=== PATIENT | female | born 1960 | race Caucasian/White ===

== ENCOUNTER 2021-03-06 08:52 | Inpatient (IN) ==
[2021-02-27 17:29] LABS: Basophils # (Auto) 0.07 K/mcL (0.00-0.20); Basophils % (Auto) 1.3 % (0.0-2.0); Eosinophils # (Auto) 0.31 K/mcL (0.00-0.70); Eosinophils % (Auto) 5.9 % (0.0-7.0); Hematocrit 44.2 % (36.0-48.0); Hemoglobin 13.3 g/dL (12.0-15.0); Lymphocytes # (Auto) 1.61 K/mcL (1.50-4.80); Lymphocytes % (Auto) 30.5 % (15.0-49.0); Mean Corpuscular HGB Conc 30.1 g/dL (31.0-36.0); Monocytes # (Auto) 0.54 K/mcL (0.10-0.90); Monocytes % (Auto) 10.2 % (1.0-12.0); Neutrophils % (Auto) 52.1 % (38.0-78.0); Platelet Count 281 K/mcL (140-440); RBC 5.67 M/mcL (4.00-5.20); WBC 5.3 K/mcL (4.5-11.0)
[2021-02-27 17:38] LABS: Blood Urea Nitrogen 8 mg/dL (8-23); Calcium 9.6 mg/dL (8.6-10.4); Carbon Dioxide 28 mmol/L (22-30); Chloride 105 mmol/L (96-108); Glomerular Filtration Rate 79; Glucose 88 mg/dL (70-105)
[2021-02-27 20:04] LABS: Appearance,Urine HAZY (Clear); Bilirubin,Urine Negative (Negative); Color,Urine YELLOW; Culture Indicated,Urine No; Glucose,Urine (UA) Negative (Negative); Ketones,Urine Negative (Negative); Leukocyte Esterase,Urine 25 /ug (Negative); Mucus,Urine FEW /hpf; Nitrate,Urine Negative (Negative); Protein,Urine 30 mg/dL (Negative); Specific Gravity,Urine 1.019 (1.000-1.035); Urine Blood Negative (Negative); Urine RBC 1 /hpf (0-3); Urine Squamous Epithelial Cell 8 /hpf (0-4); Urine WBC 7 /hpf (0-4); Urobilinogen,Urine Negative
[~2021-03-06 08:52] MED LIST: 0.9 % SODIUM CHLORIDE 9 ML, KETOROLAC 30 MG, ROPIVACAINE HCL/PF 49.5 ML, EPINEPHrine 0.... IJ SCH; ACETAMINOPHEN 500 MG TABLET PO SCH; CELECOXIB 200 MG CAPSULE PO SCH; GABAPENTIN 300 MG CAPSULE PO SCH; ceFAZolin 2 GM in DEXTROSE 5% IN WATER 50 ML IV SCH; oxyCODONE 10 MG TAB.ER.12H PO SCH
[2021-03-06] MEDS ORDERED: IPRATROPIUM/ALBUTEROL 3 ML AMPUL.NEB NEB PRN ×2 (13:00→14:37)
[2021-03-06] MEDS ORDERED: SCOPOLAMINE 1 PATCH PATCH TOPICAL PRN (13:00)
[2021-03-06] MEDS ORDERED: GENTAMICIN SULFATE 800 MG/20 ML VIAL IR ONE (13:11)
[2021-03-06] MEDS ORDERED: TRANEXAMIC ACID 1,000 MG/10 ML VIAL IV ONE (13:47)
[2021-03-06] MEDS ORDERED: KETAMINE 100 MG/ML ML ONE (13:47)
[2021-03-06] MEDS ORDERED: DEXAMETHASONE 10 MG/ML VIAL ONE (13:47)
[2021-03-06] MEDS ORDERED: FAMOTIDINE/PF 20 MG/2 ML VIAL IV ONE (13:47)
[2021-03-06] MEDS ORDERED: PROPOFOL 200 MG/20 ML VIAL IV ONE (13:47)
[2021-03-06] MEDS ORDERED: ROPIVACAINE HCL/PF 20 ML VIAL IJ ONE (13:47)
[2021-03-06] MEDS ORDERED: METOPROLOL TARTRATE 5 MG/5 ML VIAL IV ONE (13:47)
[2021-03-06] MEDS ORDERED: MIDAZOLAM 2 MG/2 ML VIAL ONE (13:47)
[2021-03-06] MEDS ORDERED: PHENYLEPHRINE 10 MG/ML VIAL ONE (13:47)
[2021-03-06] MEDS ORDERED: LIDOCAINE HCL/PF 100 MG/5 ML SYRINGE IV ONE (13:47)
[2021-03-06] MEDS ORDERED: ePHEDrine 50 MG/ML AMPUL IV ONE (13:47)
[2021-03-06] MEDS ORDERED: ONDANSETRON 4 MG/2 ML VIAL ONE (13:47)
[2021-03-06] MEDS ORDERED: ePHEDrine 50 MG/ML AMPUL IV PRN (14:37)
[2021-03-06] MEDS ORDERED: METOPROLOL TARTRATE 5 MG/5 ML VIAL IV PRN (14:37)
[2021-03-06] MEDS ORDERED: ATROPINE SULFATE 0.4 MG/ML VIAL IV PRN (14:37)
[2021-03-06] MEDS ORDERED: fentaNYL 100 MCG/2 ML VIAL IV PRN (14:37)
[2021-03-06] MEDS ORDERED: FLUMAZENIL 0.1 MG/ML ML IV PRN (14:37)
[2021-03-06] MEDS ORDERED: ONDANSETRON 4 MG/2 ML VIAL IV PRN ×2 (14:37→15:15)
[2021-03-06] MEDS ORDERED: NALOXONE HCL 0.4 MG/ML VIAL IV PRN (14:37)
[2021-03-06] MEDS ORDERED: HYDROmorphone 0.5 MG/0.5 ML SYRINGE IV PRN (14:37)
[2021-03-06] MEDS ORDERED: diphenhydrAMINE 50 MG/ML VIAL IV PRN (14:37)
[2021-03-06] MEDS ORDERED: ACETAMINOPHEN 1,000 MG/100 ML BAG IV ONE (14:37)
[2021-03-06] MEDS ORDERED: MEPERIDINE 25 MG/ML VIAL IV PRN (14:37)
[2021-03-06] MEDS ORDERED: METHOCARBAMOL 1,000 MG/10 ML VIAL IV PRN (14:37)
[2021-03-06] MEDS ORDERED: PROMETHAZINE 25 MG/ML VIAL IV PRN (14:37)
[2021-03-06] MEDS ORDERED: LACTATED RINGERS 1,000 ML IV SCH (14:45)
[2021-03-06] MEDS ORDERED: FLEETS ADULT ENEMA PR PRN (15:15)
[2021-03-06] MEDS ORDERED: BENZOCAINE/MENTHOL 1 LOZENGE PO PRN (15:15)
[2021-03-06] MEDS ORDERED: BISACODYL 10 MG SUPP.RECT PR PRN (15:15)
[2021-03-06] MEDS ORDERED: MAGNESIUM HYDROXIDE 30 ML ORAL.SUSP PO PRN (15:15)
[2021-03-06] MEDS ORDERED: TRANEXAMIC ACID 1,000 MG/10 ML VIAL IV SCH (15:15)
[2021-03-06] MEDS ORDERED: ACETAMINOPHEN 325 MG TABLET PO PRN (15:15)
[2021-03-06] MEDS ORDERED: POLYETHYLENE GLYCOL 3350 17 GM PACKET PO PRN (15:15)
--- NOTE | 2021-03-06 15:15 | Brief Operative Note ---
Brief Operative Note Date of procedure: 03/06/21 Pre-op diagnosis: Left knee failed pft Post-op diagnosis: same Procedure: left knee revision patellar femoral to tka gi Grafts/Implants: Yes Anesthesia: GETA Complications: none Surgeon: Tino Gomez Spanish Linguist: Juan Jose Castillo Estimated blood loss (cc): 40 Tourniquet Time (Minutes): 45 Specimens Removed/Pathology: none sent Condition: stable Disposition: PACU
[2021-03-06] MEDS ORDERED: ALBUTEROL SULFATE 200 PUFF INHALER INH PRN (15:17)
[2021-03-06] MEDS ORDERED: CETIRIZINE 10 MG TABLET PO PRN (15:26)
[2021-03-06] MEDS ORDERED: VITAMIN B COMPLEX 1 CAPSULE PO PRN (15:29)
--- NOTE | 2021-03-06 15:29 | Discharge Plan ---
Discharge Instructions - TKA Patient Instructions Total Knee Protocol: For Total Knee: Start ROM CHAD with stationary bike or rocking chair. Work on gaining full extension of knee. Posterior dislocation precautions provided. Hip abductor strengthening and gait training instructions provided. Apply Cryocuff as instructed. Discharge Plan Patient/Caregiver Discharge Instructions Activity: ambulate only with your walker and as per physical therapy Diet: Regular Diet Prescriptions: New hydrocodone-acetaminophen 10-325 mg Tablet 1 - 2 tab PO Q4HP PRN (Reason: Per Pain Protocol) Qty: 75 RF: 0 aspirin 325 mg Tablet,Delayed Release (Dr/Ec) 325 mg PO BID Qty: 60 RF: 0 docusate sodium [DOK] 100 mg Capsule 100 mg PO BID Qty: 60 RF: 0 No Action aspirin 81 mg tablet,delayed release (DR/EC) 81 mg PO QDAY RF: 0 omega-3 fatty acids [Fish Oil Concentrate] 1,000 mg capsule 1,000 mg PO QDAY RF: 0 atorvastatin 20 mg tablet 20 mg PO QDAY Qty: 90 RF: 4 vitamin B complex Tablet 1 tab PO QDAY PRN (Reason: Allergies) RF: 0 ferrous fumarate 324 mg (106 mg iron) tablet 324 mg PO BID RF: 0 gabapentin 300 mg capsule 300 mg PO QHS Qty: 30 RF: 0 cholecalciferol (vitamin D3) [Vitamin D3] 25 mcg (1,000 unit) Capsule 25 mcg PO QDAY RF: 0 erythromycin with ethanol 2 % solution 1 applic TOPICAL DAILYP PRN (Reason: Rash) RF: 0 omeprazole 20 mg tablet,delayed release (DR/EC) 20 mg PO ACB RF: 0 albuterol sulfate [ProAir HFA] 90 mcg/actuation HFA aerosol inhaler 2 puff INHALATION DAILYP PRN (Reason: Shortness Of Breath) RF: 0 cephalexin 500 mg Capsule 2,000 mg PO DAILY PRN (Reason: Prophylaxis) RF: 0 ascorbic acid (vitamin C) [Vitamin C] 500 mg Capsule, Extended Release 500 mg PO QDAY RF: 0 polyethylene glycol 3350 [Miralax] 17 gram/dose Powder 17 g PO QDAY RF: 0 Zyrtec 10 mg Capsule 10 mg PO QDAY PRN (Reason: Allergies) RF: 0 Other Ambulatory Orders: CPM Discharge Order (ONCE) Location: None Selected Ordered By: Juan Jose Castillo Physical Therapy DC - TKA (Routine) Location: None Selected Ordered By: Juan Jose Castillo Toilet Riser Discharge Order (ONCE) Location: None Selected Ordered By: Juan Jose Castillo Walker (ONCE) Location: None Selected Ordered By: Juan Jose Castillo Follow Up Plan Follow up with: Juan Jose Castillo PA-C [Physician [employer] Operator] - Patient Disposition: Home, Self-Care Prognosis: Good Rehab Potential: Good I certify that the patient requires SNF services: No Discharge Orders: Discharge Order (Routine); Ordered 03/07/21 Ordered By: Juan Jose Castillo
[2021-03-06] MEDS ORDERED: [UNRECOGNIZED DRUG - OTHER] TOPICAL PRN (15:30)
[2021-03-06] MEDS ORDERED: ERYTHROMYCIN TOPICAL PRN (15:30)
--- NOTE | 2021-03-06 15:55 | Operative Note ---
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 POSTOPERATIVE DIAGNOSES: Failed patellofemoral joint replacement. PROCEDURE: Left total knee arthroplasty revision of patellofemoral to a total knee arthroplasty using the [employer] robot, hardware removal of the old implant with the implantation of the new. SURGEON: Tino Gomez M.D. IT COMPLIANCE ANALYST: Juan Jose Castillo PA-C. The PA's assistance was required for the safe and efficient completion of the entire case. This provider's expertise and technical skill were required throughout the case. The PA assisted with preoperative coordination, intraoperative retraction, wound closure, dressing and splint application, as well as postoperative documentation and care coordination. ANESTHESIA: General LMA anesthesia. COMPLICATIONS: None. TOURNIQUET TIME: 45 minutes. DESCRIPTION OF PROCEDURE: The patient was brought to the operating room, put to sleep with general LMA anesthesia. Once asleep, the patient had the left leg sterilely prepped and draped. Ioban was placed over the skin. A timeout was performed confirming this as the operative site by initials, consent form, and x-rays. The leg was exsanguinated and tourniquet inflated to 250 pounds of pressure. A midline incision through a prior scar was made. Once done, we were able to expose the joint with a midvastus approach showing a well-positioned patellofemoral joint without any sign of loosening, Soft tissue from the superior pouch was sent for high-powered field. Once done, we were able to then remove the implant with minimal bone loss. We also removed the patellofemoral implant. The patellar button was removed using a reciprocating saw. We irrigated thoroughly and then we registered the center of hip rotation after placing two pins above and below the knee. We registered medial and lateral malleolus, registered intra-articular pins, registered thirty points on the femur and the tibia. We balanced the knee at 90 degrees as well as at 15 degrees. Once this was balanced and we adjusted the implants according to the patient's ligamentous laxity, we then brought in the robot and made the bony cuts and trialed the implants. These fit very well with a 9 mm cruciate-retained total knee. We removed the poly covering of the patella using the reciprocating saw. We then drilled the peg holes and then trialed the components. All seemed to fit well. The robot registered the ligamentous tightening that we had preoperatively planned, and it was symmetric and equal. We irrigated thoroughly. We were able to then cement into place all new components, new femur, new tibial baseplate with a 9 mm cruciate-retained design poly liner and then a 36 mm patellar button. These all fit very nicely. We irrigated thoroughly, deflated the tourniquet at 45 minutes. We also controlled bleeding and the posterior capsule was injected with the post-injection formula. We closed the midvastus approach with #1 Stratafix and subcutaneous suture. Adhesive closure was also applied. Capsule was closed with #1 Stratafix x2 with a good repair. We also removed one anchor that had been placed on the tibia for an unknown reason. This was removed without difficulty. We preserved the posterior cruciate ligament. There were no complications. RBH:mell Job ID: [id number] Doc ID: [id number] Tino Gomez MD
--- NOTE | 2021-03-06 15:59 | XRay Report ---
INDICATION: Post-Op Total Knee TECHNIQUE: AP and crosstable lateral knee COMPARISON: Previous examination dated 02/03/2020 FINDINGS:Interval revision of left knee arthroplasty. Findings are not consistent with total knee arthroplasty. Prosthetic components are in anatomic positions. There is postsurgical soft tissue and intra-articular gas IMPRESSION: Status post left total knee arthroplasty Interpreted and Authenticated by: Ethan Mukherjee 03/06/21
[2021-03-06] MEDS: 0.45 % SODIUM CHLORIDE 1,000 ML IV SCH (16:57)
[2021-03-06] MEDS: KETOROLAC 15 MG/ML VIAL IV SCH (18:05)
[2021-03-06] MEDS: FERROUS FUMARATE PO SCH (18:06)
[2021-03-06] MEDS: HYDROcodone/APAP 10/325MG TABLET PO PRN (19:10)
[2021-03-06] MEDS ORDERED: SENNOSIDES 1 TABLET PO SCH (21:00)
[2021-03-06] MEDS ORDERED: TEMAZEPAM 15 MG CAPSULE PO PRN (21:00)
[2021-03-06] MEDS ORDERED: GABAPENTIN 300 MG CAPSULE PO SCH (21:00)
[2021-03-06] MEDS: ASPIRIN 325 MG ENTERIC COATED TABLET PO SCH (21:14)
[2021-03-06] MEDS: DOCUSATE SODIUM 100 MG CAPSULE PO SCH (21:14)
[2021-03-06] MEDS: ceFAZolin 1 GM VIAL IV SCH (21:14)
[2021-03-06] MEDS: 0.9 % SODIUM CHLORIDE 10 ML SYRINGE IV SCH (21:46)
[2021-03-07] MEDS: HYDROcodone/APAP 10/325MG TABLET PO PRN ×3 (00:11→10:58)
[2021-03-07] MEDS: KETOROLAC 15 MG/ML VIAL IV SCH ×2 (00:12→05:32)
[2021-03-07] MEDS: 0.45 % SODIUM CHLORIDE 1,000 ML IV SCH (03:09)
[2021-03-07] MEDS: 0.9 % SODIUM CHLORIDE 10 ML SYRINGE IV SCH (05:33)
[2021-03-07] MEDS: ceFAZolin 1 GM VIAL IV SCH (05:33)
[2021-03-07] MEDS ORDERED: OMEPRAZOLE 20 MG CAPSULE PO SCH (07:30)
--- NOTE | 2021-03-07 07:40 | Orthopedic Progress Note ---
SUBJECTIVE Subjective Patient information: Note initiated : 03/07/21 at 7:39 am Service Date, if different from initiated Date: [] Patient: Elizabeth Aldrich 60 y/o F admitted on 03/06/21 for Left Total Knee Arthroplasty Revision Matt,. Chief Complaint: [Pt is stable this morning on post operative day without any significant concerns or complaints. Patients vital signs have remained stable. Patients dressing is dry and is grossly intact from a neurovascular and motor standpoint. Patients 10 point ROS is otherwise negative. ] Constitutional Vitals: Vital Signs Temp Pulse Resp BP Pulse Ox 97.7 F 57 L 20 132/64 95 03/07/21 07:31 03/07/21 07:31 03/07/21 07:31 03/07/21 07:31 03/07/21 07:31 Period Temp Pulse Resp BP Sys/Smith Pulse Ox Last 24 Hr 96.9 F-99.6 F 47-77 16-23 123-141/62-72 92-100 Intake and Output 03/06/21 03/07/21 03/07/21 21:59 05:59 13:59 Intake Total 2110 1300 Output Total 1175 770 Balance 935 530 Weight 250 lb 3 oz Intake & Output: Intake & Output 03/06/21 03/07/21 03/07/21 21:59 05:59 13:59 Intake Total 2110 1300 Output Total 1175 770 Balance 935 530 Weight 250 lb 3 oz Intake: IV 50 1000 Sodium Chloride 0.45% 1,000 ml 1000 @ 100 mls/hr IV .Q10H [facility] Rx#: [id number] Ancef 2 gm In Dextrose 5% in 50 Water 50 ml @ 100 mls/hr IV PREOP [facility] Rx#:[id number] Oral 360 300 IV - Manual Only 1700 Output: Urine Catheter Amount 725 Straight 725 Void Amount 400 770 Estimated Blood Loss 50 Other: Meal Dinner Percent of Meal Consumed 100% Feeding Ability Independent Urine Appearance Clear Clear Straight Clear Urine Color Pale Bright Yellow Straight Pale Extremities Exam Extremities exam: Present normal capillary refill, normal inspection, Foot pink and warm and neurovascular intact OBJ DATA Labs CBC & Chem 7: 03/07/21 05:21 02/27/21 14:58 Meds: Medications Acetaminophen (Acetaminophen 325 Mg Tablet) 650 mg PO Q6HP PRN; Protocol PRN Reason: Per Pain Protocol/Fever > 101 Hydrocodone Bitart/Acetaminophen (Hydrocodone/Apap 10/325mg Tablet) 1 - 2 tab PO Q4HP PRN; Protocol PRN Reason: Per Pain Protocol Last Admin: 03/07/21 05:33 Dose: 1 tab Documented by: Albuterol Sulfate (Albuterol Sulfate 200 Puff Inhaler) 2 puff INH DAILYP PRN PRN Reason: Shortness Of Breath Ascorbic Acid (Ascorbic Acid 500 Mg Tablet) 500 mg PO DAILY [facility] Aspirin (Aspirin 325 Mg Enteric Coated Tablet) 325 mg PO BID [facility] Last Admin: 03/06/21 21:14 Dose: 325 mg Documented by: Atorvastatin Calcium (Atorvastatin 20 Mg Tablet) 20 mg PO QDAY [facility] Bisacodyl (Bisacodyl 10 Mg Supp.Rect) 10 mg RI Q2-3DAYS PRN PRN Reason: Constipation Cetirizine HCl (Cetirizine 10 Mg Tablet) 10 mg PO DAILYP PRN PRN Reason: Allergies Last Admin: 03/06/21 21:17 Dose: 10 mg Documented by: Docusate Sodium (Docusate Sodium 100 Mg Capsule) 100 mg PO BID [facility] Last Admin: 03/06/21 21:14 Dose: 100 mg Documented by: Fish Oil (Fish Oil 1,000 Mg Capsule) 1,000 mg PO DAILY [facility] Gabapentin (Gabapentin 300 Mg Capsule) 300 mg PO QHS [facility] Last Admin: 03/06/21 21:15 Dose: 300 mg Documented by: Ketorolac Tromethamine (Ketorolac 15 Mg/Ml Vial) 15 mg IV Q6 [facility] Stop: 03/08/21 12:01 Last Admin: 03/07/21 05:32 Dose: 15 mg Documented by: Magnesium Hydroxide (Magnesium Hydroxide 30 Ml Oral.Susp) 30 ml PO BIDP PRN PRN Reason: Constipation Omeprazole (Omeprazole 20 Mg Capsule) 20 mg PO ACB [facility] Last Admin: 03/07/21 06:57 Dose: 20 mg Documented by: Ondansetron HCl (Ondansetron 4 Mg/2 Ml Vial) 4 mg IV Q4HP PRN PRN Reason: Nausea And Vomiting Erythromycin With (Ethanol 2 % Solution) 1 dose TOPICAL DAILYP PRN PRN Reason: Rash Ferrous Fumarate 324 Mg (106 Mg Iron) [facility]t [facility] Last Admin: 03/06/21 18:06 Dose: Not Given Documented by: Polyethylene Glycol (Polyethylene Glycol 3350 17 Gm Packet) 17 gm PO DAILY [facility] Senna (Sennosides 1 Tablet) 2 tab PO HS [facility] Last Admin: 03/06/21 21:15 Dose: 2 tab Documented by: Sodium Biphosphate/Sodium Phosphate (Fleets Adult Enema) 1 dose RI Q3-4DAYS PRN PRN Reason: Constipation Sodium Chloride (0.9 % Sodium Chloride 10 Ml Syringe) 10 ml IV Q8 [facility] Last Admin: 03/07/21 05:33 Dose: 10 ml Documented by: Temazepam (Temazepam 15 Mg Capsule) 15 mg PO HSP PRN PRN Reason: Insomnia Last Admin: 03/07/21 00:11 Dose: 15 mg Documented by: Throat Lozenges (Benzocaine/Menthol 1 Lozenge) 1 lozenge PO PRN PRN PRN Reason: Sore Throat Vitamin B Complex (Vitamin B Complex 1 Capsule) 1 cap PO DAILYP PRN PRN Reason: Allergies Vitamin D (Vitamin D3 1,000 Unit Tablet) 1,000 unit PO DAILY [facility] A/P Narrative A/P Narrative: The patient has been educated regarding dressing care, Physical Therapy recommendations, home exercises, restrictions, and follow up appointme nts. The patient has had all necessary DME prescribed. The patient has remained relatively stable during their hospital course. Pt has progressed quicker than expected and meets the criteria for early discharge per Physicial Therapy and our evaluation. Time Spent With Patient Time: Total time spent is greater than 50% in coordination of care (as documented) at patient's floor/unit and/or counseling patient: Total time spent with greater than 50% in coordination of care (as documented) at patient's floor/unit and/or counseling patient:: less than 15 minutes
[2021-03-07] MEDS: ASPIRIN 325 MG ENTERIC COATED TABLET PO SCH (08:20)
[2021-03-07] MEDS: DOCUSATE SODIUM 100 MG CAPSULE PO SCH (08:20)
[2021-03-07] MEDS: FERROUS FUMARATE PO SCH (08:22)
[2021-03-07] MEDS ORDERED: FISH OIL 1,000 MG CAPSULE PO SCH (09:00)
[2021-03-07] MEDS ORDERED: POLYETHYLENE GLYCOL 3350 17 GM PACKET PO SCH (09:00)
[2021-03-07] MEDS ORDERED: ASCORBIC ACID 500 MG TABLET PO SCH (09:00)
[2021-03-07] MEDS ORDERED: VITAMIN D3 1,000 UNIT TABLET PO SCH (09:00)
[2021-03-07] MEDS ORDERED: ATORVASTATIN 20 MG TABLET PO SCH (09:00)
--- NOTE | 2021-03-07 12:38 | Surgical Pathology Report ---
Histology Microscopic Diagnosis Specimen A- LEFT SUPER PATELLAR POUCH EXCISION: --- SKELETAL MUSCLE AND FIBROADIPOSE TISSUE WITH MILD CHRONIC INFLAMMATION. --- NO SIGNIFICANT ACUTE INFLAMMATION IDENTIFIED; LESS THAN ONE NEUTROPHIL/HPF. IOC Diagnosis FROZEN SECTION DIAGNOSIS (Performed at [facility], [place], [place]) LEFT SUPRAPATELLAR POUCH, EXCISION: --- NO SIGNIFICANT ACUTE INFLAMMATION. --- LESS THAN ONE NEUTROPHIL/HPF. (EBD:adj) Procedural Impression Left total knee revision. Gross Description Received fresh labeled left suprapatellar pouch excision, is a 3.6 x 2.7 x 0.9 cm good-pink to red soft tissue piece. A portion is used for frozen section in one cassette. (EBD:adj) Electronically Signed Camille Bush MD, FCAP Electronically Signed 03/07/2021 12:37
== END 2021-03-07 11:03 | disposition home or self-care (01) | DRG 467 ==
LOC: MEDSUR 08:52 → MEDSUROUT 08:52 → MEDSUR 08:55 → EDSTATUS 14:00
PROVIDERS: ADMIT Orthopaedic Surgery; ATTEND Orthopaedic Surgery